=== PATIENT | male | born 1995 | race Caucasian/White ===

== ENCOUNTER 2017-05-30 14:52 | Emergency (ER) | payer OTHER ==
[~2017-05-30] VITALS: Ht 177.8 cm; Wt 77.1 kg
[2017-05-30 15:00] VITALS: O2SAT 98; Ht 177.8 cm; Wt 77.1 kg
--- NOTE | 2017-05-30 15:57 | EMERGENCY ROOM VISIT NOTE ---
History Report prepared by Timothy: Andre Puentes Under the Supervision of: Dr. Franklin Manriquez M.D. First contact with patient: 14:55 Chief Complaint: ALCOHOL OVERDOSE Stated Complaint: ETOH History of Present Illness The patient is a 21 year old male who presents to the Emergency Room with complaints of constant alcohol intoxication that started this morning. Per the patient's girlfriend, the patient was drinking alcohol last night and was blacking in and out. She reports that he took ZzzQuil to go to bed and was able to fall asleep. She reports that patient woke up normal this morning and ate breakfast. His girlfriend reports the patient started drinking vodka and beer following his breakfast. Per nursing, the patient was found unresponsive outside by the police. When the patient had awoken he became combative with the police, which resulted in them taking him to the ED. The patient denies falling , any injuries, and any medical problems. The HPI is limited secondary to alcohol intoxication. Source of History: spouse/significant other, nursing staff Onset: this morning Position: other (global) Quality: other (global) Timing: constant Review of Systems Limited secondary to intoxication Past Medical & Surgical Medical Problems: (1) No active medical problems Family History Patient reports no known family medical history. Social History Smoking Status: Never Smoker Alcohol Use: occasionally Marital Status: single Housing Status: lives with roommate Occupation Status: student Current/Historical Medications Scheduled Diphenhydramine Hcl (Sleep) (Zzzquil), 25 MG PO HS Allergies Coded Allergies: Penicillins (Verified Allergy, Mild, RASH, 02/10/16) Physical Exam Vital Signs Date Time Temp Pulse Resp B/P (MAP) Pulse Ox O2 Delivery O2 Flow Rate FiO2 05/30/17 22:40 36.3 87 20 141/54 99 05/30/17 22:09 87 20 141/54 99 Room Air 05/30/17 21:09 70 20 125/60 99 Room Air 05/30/17 20:37 75 18 110/55 98 Room Air 05/30/17 19:53 69 18 105/51 98 Room Air 05/30/17 19:11 67 18 106/40 99 Room Air 05/30/17 18:31 73 19 110/35 95 Room Air 05/30/17 17:47 76 18 112/47 98 Room Air 05/30/17 16:12 86 16 105/72 99 Room Air 05/30/17 15:03 102 05/30/17 15:00 98 Room Air 05/30/17 15:00 36.3 113 18 152/88 98 Room Air Physical Exam GENERAL: Very intoxicated, agitated, slurring his speech, uncooperative. HENT: Normocephalic, atraumatic. Oropharynx unremarkable. EYES: PERRL. Erythematous conjunctiva. Sclera non-icteric. NECK: Supple. No nuchal rigidity. FROM. No masses. RESPIRATORY: CTA. Breath sounds equal. No wheezes. CARDIAC: Normal rate. Normal rhythm. No murmurs. No rubs. GI/ABDOMEN: Soft, non distended. No tenderness to palpation. No rebound or guarding. No masses. RECTAL: Deferred. MUSCULOSKELETAL: No edema. No discoloration. Gross motor strength 5/5 bilaterally. NEURO: Altered sensorium. No sensory or motor deficits noted. Speech slurred. SKIN: No rash or jaundice noted. LYMPH: No adenopathy. Medical Decision & Procedures Laboratory Results 05/30/17 15:37 Test 05/30/17 15:37 Anion Gap 5.0 mmol/L (3-11) Est Creatinine Clear Calc Drug Dose 106.8 ml/min Estimated GFR () 107.5 Estimated GFR (Non- 92.7 BUN/Creatinine Ratio 14.3 (10-20) Calcium Level 8.8 mg/dl (8.5-10.1) Ethyl Alcohol mg/dL 300.0 mg/dl (0-3) Laboratory results reviewed by me Medications Administered Medications (Trade) Dose Ordered Sig/Matheus Route Start Time Stop Time Status Last Admin Dose Admin Haloperidol Lactate (Haldol Inj) 5 mg NOW STAT IM 05/30/17 16:00 05/30/17 16:01 DC 05/30/17 16:10 5 MG Lorazepam (Ativan Inj) 1 mg NOW STAT IM 05/30/17 16:00 05/30/17 16:01 DC 05/30/17 16:09 1 MG ED Course 1457: The patient was evaluated in room C01B. A complete history and physical exam was performed. 1526: I reevaluated the patient and he was still being uncooperative. We are going to try to get his blood work. His girlfriend was present and trying to get him to calm down. 1540: I reevaluated the patient and he is calm and cooperative at the moment. We were able to get blood work done. 1555: Nursing informed me that the patient is being uncooperative again and he ran out into the hallway. I will order Ativan and Haldol. 1600: Ordered Ativan Injection 1 mg IM, Haldol Injection 5 mg IM. 1607: I reassessed the patient and he is getting medications to get him relaxed. 1623: I reevaluated the patient and he is still agitated. 1638: I reevaluated the patient and he is sleeping. 1718: I reevaluated the patient and he is resting comfortably. His mother is on her way to the hospital. 174: The patients family showed up. I updated them on the situation and his mother will return when the patient is sober. 1918: I reevaluated the patient and he is sleeping. 2027: I reevaluated the patient and he is stable. 2149: I reevaluated the patient and he is resting comfortably. 0: I reevaluated the patient and he is awake. He is accompanied by his mother and sister. Discussed results and discharge instructions: He verbalized understanding and agreement. The patient is ready for discharge. Medical Decision Prior records/ancillary studies reviewed. Triage Nursing notes reviewed and agree them. Additional history obtained from in the patient's girlfriend and cousin. The patient's history was concerning for altered mental status and a possible alcohol overdose. Differential diagnosis: Etiologies such as toxicologic, infection, hypoglycemia, electrolyte abnormalities, cardiac sources, intracerebral event, neurologic, as well as others were entertained. Physical examination: As above ER treatment provided: Monitoring Aspiration precautions Haldol and Ativan were required secondary to his agitation and dangerous behavior. The patient was frequently reassessed. On reassessment the patient was doing better. His intoxication was clearing nicely. Diagnostic interpretation by me: Cardiac monitoring did not reveal any evidence of dysrhythmia. The labs revealed normal chemistries. The patient's blood alcohol level was 300 mg/dL. The patient's history was reviewed once they were more coherent and their intoxication cleared. The patient states they have been in good health recently and had no medical complaints. No additional concerning findings were noted. The patient complained of no symptoms to suggest assault. This appears to be related to an isolated overdose of alcohol. The patient was counseled on the severity.I gave my usual and customary discussion regarding this issue. By the evaluation outlined above emergent etiologies such as trauma, infection , hypoglycemia, electrolyte abnormalities, cardiac sources, intracerebral event , neurologic,as well as others were deemed relatively unlikely. The patient was informed about the findings as listed above. All questions were answered and the patient was pleased with the treatment. Return instructions were outlined and the patient was discharged in stable condition once their mental status improved and a safe destination was confirmed. Outpatient prescription management: None Referral: The patient was referred back to their primary care physician for follow-up in 2 to 3 days for a recheck of their current condition. Medication Reconcilliation Current Medication List: was personally reviewed by me Blood Pressure Screening Patient's blood pressure: Normal blood pressure Impression Primary Impression: Alcohol use with intoxication Scribe Attestation The scribe's documentation has been prepared under my direction and personally reviewed by me in its entirety. I confirm that the note above accurately reflects all work, treatment, procedures, and medical decision making performed by me. Departure Information Dispostion Home / Self-Care Referrals No Doctor, Assigned (PCP) Forms HOME CARE DOCUMENTATION FORM, IMPORTANT VISIT INFORMATION Patient Instructions Alcohol Abuse - [facility], Alcohol Intoxication - [facility] [employer] Students and Alcohol Related Visits, [facility] Additional Instructions Your blood alcohol level was 300 mg/dL. For reference 80 mg/dL is the legal driving limit. Do not drive or work for 24 hours. Ibuprofen may be used for headache. Eat a healthy diet and drink plenty of fluids. Consume alcohol only in moderation. Return to the emergency department for fevers, vomiting, abdominal pain, chest pain, passing out, or as needed. Follow-up with your primary care physician in 2 to 3 days for a recheck of your current condition.
[2017-05-30] MEDS ORDERED: LORAZEPAM 2 MG/ML 1 ML VIAL IM STA (16:00)
[2017-05-30] MEDS ORDERED: HALOPERIDOL LACTATE 5 MG/ML 1 ML VIAL IM STA (16:00)
[2017-05-30 16:09] LABS: CALCIUM 8.8 mg/dl (8.5-10.1); CREATININE 1.12 mg/dl (0.60-1.40); POTASSIUM 4.1 mmol/L (3.5-5.1)
[2017-05-30] MEDS ORDERED: DIPH30CA2 PO (16:10)
[2017-05-30 22:40] VITALS: BP 141/54; PULSE 87; TEMP 36.3; O2SAT 99
== END 2017-05-30 22:42 | disposition home or self-care (01) ==
LOC: EDBD 14:52 → C.EDC 14:54
DX: F10.929 Alcohol use, unspecified with intoxication, unspecified (principal); Y90.8 Blood alcohol level of 240 mg/100 ml or more; Z88.0 Allergy status to penicillin